=== PATIENT | female | born 1975 | race Caucasian/White ===

== ENCOUNTER 2024-05-17 10:37 | Emergency (ER) | payer MEDICAID ==
[~2024-05-17] VITALS: Ht 158.8 cm; Wt 85.5 kg
[2024-05-17 10:43] VITALS: BP 155/93; PULSE 107; RESP 16; TEMP 97.9; O2SAT 96
[2024-05-17 11:06] LABS: APPEARANCE,URINE CLEAR (CLEAR); BILIRUBIN,URINE NEGATIVE (NEGATIVE); BLOOD, URINE 1+ (NEGATIVE); COLOR,URINE YELLOW (YELLOW); LEUKOCYTE ESTERASE ,URINE 1+ (NEGATIVE); NITRITE, URINE NEGATIVE (NEGATIVE); PROTEIN,URINE TRACE (NEGATIVE); UGLUCOSE NEGATIVE (NEGATIVE); UROBILINOGEN,URINE 0.2 EU/dL (0.2 - 1)
[2024-05-17 11:15] LABS: RBC,URINE 11-20 (MOD) /HPF (0-5)
[2024-05-17 11:16] LABS: BACTERIA,URINE 10-30 (MOD) /HPF (None Seen); MUCUS,URINE 1+ /LPF (None Seen); SQUAMOUS EPITHELIAL CELL,UR 4-10 (MOD) /LPF (0-3 (FEW))
[2024-05-17 16:00] VITALS: O2SAT 96
[2024-05-17] MEDS ORDERED: SULF-59 PO (18:02)
[2024-05-17] MEDS ORDERED: SENN1TAB80 PO (18:21)
== END 2024-05-17 18:39 | disposition home or self-care (01) ==
LOC: MED 10:37
DX: R30.0 Dysuria (principal); K59.00 Constipation, unspecified; K80.20 Calculus of gallbladder without cholecystitis without obstruction; Z79.899 Other long term (current) drug therapy
CPT/HCPCS: 74176; 76705; 81001; 81025; 87086; 87186; 99284; Q0092